=== PATIENT | male | born 1980 | race Caucasian/White ===

== ENCOUNTER 2017-05-10 12:45 | Inpatient (IN) | payer OTHER ==
[2017-05-10 13:29] VITALS: BMI 21.7
--- NOTE | 2017-05-10 14:11 | HP ---
COWS - Scale Resting Pulse: 1= [place] 81-100 Sweatin= Chills/Flushing Restless Observation: 3= Extraneous Movement Pupil Size: 0= Normal to Room Light Bone or Joint Aches: 2= Severe Diffuse Aches Runny Nose/ Eye Tearin= Runny Nose/Eyes GI Upset > 30mins: 1= Stomach Cramp Tremor Observation: 1= Tremor [place], Not Seen Yawning Observation: 1= 1-2x During Session Anxiety or Irritability: 2=Irritable/Anxious Goose Flesh Skin: 0=Smooth Skin COWS Score: 14 Admission ROS [facility]HS - HPI Chief Complaint: DETOX TX FOR HEROIN AND OXYCODONE DEPENDENCE History of Present Illness: 36 Y/O MALE WITH A HX OF HEROIN AND OXYCODONE DEPENDENCE SEEKING DETOX [place]. Exam Limitations: No Limitations - Ebola screening Have you traveled outside of the country in the last 21 days: No Have you had contact with anyone from an Ebola affected area: No Have you been sick,other than usual withdrawal symptoms: No Do you have a fever: No - Review of Systems Constitutional: Chills, Loss of Appetite, Night Sweats, Changes in sleep, Unintentional Wgt. Loss EENT: reports: Tearing, Nose Congestion, Dental Problems (CAVITIES IN THE PAST) Respiratory: reports: No Symptoms reported Cardiac: reports: Lightheadedness GI: reports: Constipated, Diarrhea, Nausea, Vomiting : reports: No Symptoms Reported Musculoskeletal: reports: Joint Pain, Muscle Pain Integumentary: reports: Bruising (IVD INJ SITES ON HANDS) Neuro: reports: Dizziness Endocrine: reports: No Symptoms Reported Hematology: reports: No Symptoms Reported Psychiatric: reports: Orientated x3, Depressed Other Systems: Reviewed and Negative Patient History - Patient Medical History Hx Anemia: No Hx Asthma: No Hx Chronic Obstructive Pulmonary Disease (COPD): No Hx Cardiac Disorders: No Hx Hypertension: No Hx Hypercholesterolemia: No HX Cerebrovascular Accident: No Hx Seizures: No Hx Diabetes: No Hx Gastrointestinal Disorders: No Hx Genitourinary Disorders: No Hx Sexually Transmitted Disorders: No Hx Renal Disease (ESRD): No Hx Thyroid Disease: No Hx Human Immunodeficiency Virus (HIV): No (NEGATIVE HX) Hx Hepatitis C: No Hx Depression: No Hx Suicide Attempt: No (DENIES) Hx Bipolar Disorder: No Hx Schizophrenia: No - Patient Surgical History Past Surgical History: No Hx Neurologic Surgery: No Hx Cataract Extraction: No Hx Cardiac Surgery: No Hx Lung Surgery: No Hx Breast Surgery: No Hx Breast Biopsy: No Hx Abdominal Surgery: No Hx Appendectomy: No Hx Cholecystectomy: No Hx Genitourinary Surgery: No Hx Orthopedic Surgery: No Anesthesia Reaction: No - PPD History Previous Implant?: No Implanted On Prior [facility] Admission?: No Results: TBD PPD to be Administered?: Yes - Reproductive History Patient is a Female of Child Bearing Age (11 -55 yrs old): No (MALE) Patient : (N/A) - Smoking Cessation Smoking history: Current every day smoker Have you smoked in the past 12 months: Yes Aproximately how many cigarettes per day: 20 Hx Chewing Tobacco Use: No Initiated information on smoking cessation: Yes 'Breaking Loose' booklet given: 05/10/17 - Substance & Tx. History Hx Alcohol Use: No Hx Substance Use: Yes (HEROIN/OXYCODONE) Substance Use Type: Heroin, Opiates Hx Substance Use Treatment: No (DENIES PREVIOUS [place]) - Substances Abused Heroin Route: Injection Frequency: Daily Amount used: 40 BAGS Age of first use: 34 Date of Last Use: 05/09/17 OXYCODONE Route: Oral Frequency: Daily Amount used: 7 PILLS Age of first use: 32 Date of Last Use: 05/09/17 Family Disease History - Family Disease History Family History: Denies Admission Physical Exam S - Vital Signs Vital Signs: Vital Signs - 24 hr 05/10/17 13:27 Temperature 96.9 F L Pulse Rate 87 Respiratory 20 Rate Blood Pressure 120/75 - Physical General Appearance: Yes: Moderate Distress, Irritable, Anxious HEENTM: Yes: EOMI, Normocephalic, ALY, Pharynx Normal Respiratory: Yes: Chest Non-Tender, Lungs Clear, Normal Breath Sounds, No Respiratory Distress Neck: Yes: Supple, Trachea in good position Breast: Yes: Breast Exam Deferred Cardiology: Yes: Regular Rhythm, Regular Rate, S1, S2 Abdominal: Yes: Normal Bowel Sounds, Non Tender, Flat, Soft Genitourinary: Yes: Other (N/C) Back: Yes: Within Normal Limits Musculoskeletal: Yes: full range of Motion, Gait Steady Extremities: Yes: Normal Range of Motion, Non-Tender Neurological: Yes: rnp II-XII NML intact, Fully Oriented, Alert, Motor Strength 5/5 Integumentary: Yes: Dry, Warm, Track Arce (IVD INJ SITES ON BOTH HANDS--NO REDNESS OR SWELLING) Lymphatic: Yes: Within Normal Limits - Diagnostic (1) Opioid dependence with withdrawal Current Visit: Yes Status: Acute (2) Nicotine dependence Current Visit: Yes Status: Acute Qualifiers: Nicotine product type: cigarettes Substance use status: in withdrawal Qualified Code(s): F17.213 - Nicotine dependence, cigarettes, with withdrawal; F17.213 - Nicotine dependence, cigarettes, with withdrawal Cleared for Admission [facility] - Detox or Rehab [facility] Level of Care: Medically Managed Detox Regimen/Protocol: Methadone [facility] Breath Alcohol Content Breath Alcohol Content: 0 Urine Drug Screen - Results Drug Screen Negative: No Urine Drug Screen Results: OPI-Opiates
[2017-05-10] MEDS ORDERED: NICOTINE POLACRILEX 4 MG GUM BUC PRN (14:56)
[2017-05-10] MEDS ORDERED: P-EPHED 60MG/TRIPROLIDI 2.5MG TABLET PO PRN (14:56)
[2017-05-10] MEDS ORDERED: MAG HYDROX/AL HYDROX/SIMETH 30 ML UNIT-DOSE CUP PO PRN (14:56)
[2017-05-10] MEDS ORDERED: MAGNESIUM CITRATE 300 ML BOTTLE PO PRN (14:56)
[2017-05-10] MEDS ORDERED: guaiFENesin/D-METHORPHAN HB 10 ML UNIT-DOSE CUPS PO PRN (14:56)
[2017-05-10] MEDS ORDERED: IBUPROFEN 400 MG TABLET (FP) PO PRN (14:56)
[2017-05-10] MEDS ORDERED: MENTHOL/PHENOL 1 EACH UD MM PRN (14:56)
[2017-05-10] MEDS ORDERED: ACETAMINOPHEN 325 MG TABLET (FP) PO PRN (14:56)
[2017-05-10] MEDS ORDERED: LOPERAMIDE HCL 2 MG CAPSULE PO PRN (14:56)
[2017-05-10] MEDS ORDERED: hydrOXYzine PAMOATE 50 MG CAPSULE (FP) PO PRN (14:56)
[2017-05-10] MEDS ORDERED: MAGNESIUM HYDROX 2400MG/30ML ORAL SUSPENSION 30 ML CUP PO PRN (14:56)
[2017-05-10] MEDS ORDERED: METHADONE HCL 10 MG TABLET (FOR DETOX USE ONLY) PO ONE ×2 (15:37→23:00)
[2017-05-10] MEDS: diazePAM 5 MG TABLET PO PRN ×2 (16:53→22:17)
[2017-05-10 16:55] LABS: MCH 29.1 pg (25.7-33.7); MCHC 34.3 g/dl (32.0-35.9); MEAN CELL VOLUME 84.9 fl (80-96); MEAN PLT VOLUME 8.7 fl (7.5-11.1); PLATELET COUNT 285 K/MM3 (134-434)
[2017-05-10] MEDS: NICOTINE 21 MG/24 HOURS TOPICAL PATCH TD SCH (16:56)
[2017-05-10 17:03] LABS: ALBUMIN 4.1 g/dl (3.4-5.0); ANION GAP 10 (8-16); CALCIUM 9.1 mg/dL (8.5-10.1); CO2 28 mmol/L (21-32); CREATININE 0.8 mg/dL (0.7-1.3); GLUCOSE,RANDOM 74 mg/dL (74-106); SGOT/AST 15 U/L (15-37); SGPT/ALT 18 U/L (12-78)
[2017-05-10 17:05] LABS: ALK PHOS 111 U/L (45-117); BILIRUBIN,TOTAL 0.5 mg/dL (0.2-1.0)
--- NOTE | 2017-05-10 17:16 | PN ---
BHS Progress Note Note: received nurse call that the patient needs ppd continue detox
[2017-05-10] MEDS ORDERED: ONDANSETRON *ODT* 4 MG TABLET SL PRN (21:13)
[2017-05-10] MEDS ORDERED: THIAMINE HCL 100 MG TABLET (FP) PO SCH (22:00)
[2017-05-10] MEDS: diphenhydrAMINE HCL 50 MG CAPSULE PO PRN (22:17)
[2017-05-10 23:11] LABS: URINE APPEARANCE CLEAR; URINE BILIRUBIN NEGATIVE (NEGATIVE); URINE BLOOD NEGATIVE (NEGATIVE); URINE COLOR YELLOW; URINE GLUCOSE (UA) NEGATIVE (NEGATIVE); URINE KETONE NEGATIVE (NEGATIVE); URINE LEUK ESTERASE NEGATIVE (NEGATIVE); URINE NITRITE NEGATIVE (NEGATIVE); URINE PROTEIN NEGATIVE (NEGATIVE); URINE UROBILINOGEN NEGATIVE mg/dL (0.2-1.0)
[2017-05-11] MEDS: diazePAM 5 MG TABLET PO PRN ×3 (02:38→10:45)
[2017-05-11] MEDS: diphenhydrAMINE HCL 50 MG CAPSULE PO PRN (03:02)
[2017-05-11] MEDS ORDERED: METHADONE HCL 10 MG TABLET (FOR DETOX USE ONLY) PO ONE (10:00)
[2017-05-11] MEDS ORDERED: PRENATAL VITAMINS W/ FOLIC ACID TABLET (FP) PO SCH (10:00)
[2017-05-11] MEDS: NICOTINE 21 MG/24 HOURS TOPICAL PATCH TD SCH (10:24)
--- NOTE | 2017-05-11 11:52 | EKG ---
Test Reason : Blood Pressure : / mmHG Vent. Rate : 086 BPM Atrial Rate : 086 BPM P-R Int : 128 ms QRS Dur : 098 ms QT Int : 378 ms P-R-T Axes : 066 075 059 degrees QTc Int : 452 ms NORMAL SINUS RHYTHM INCOMPLETE RIGHT BUNDLE BRANCH BLOCK BORDERLINE ECG NO PREVIOUS ECGS AVAILABLE Confirmed by NAEEM LUX MD ([id number]) on 05/11/2017 11:52:16 AM Referred By: Confirmed By:NAEEM LUX MD
--- NOTE | 2017-05-11 12:41 | PN ---
BHS COWS - Scale Resting Pulse: 1= [place] 81-100 Sweatin= Chills/Flushing Restless Observation: 1= Difficult to Sit Still Pupil Size: 0= Normal to Room Light Bone or Joint Aches: 1= Mild Discomfort Runny Nose/ Eye Tearin= Nasal Congestion GI Upset > 30mins: 2= Nausea/Diarrhea Tremor Observation of Outstretched Hands: 0= None Yawning Observation: 1= 1-2x During Session Anxiety or Irritability: 2=Irritable/Anxious Goose Flesh Skin: 3=[place] COWS Score: 13 BHS Progress Note (SOAP) Subjective: Sweating, Stomach Cramping, Nausea, Interrupted sleep Objective: PT. A & O X 3, OBSERVED AMBULATING ON UNIT. NO ACUTE DISTRESS. 05/11/17 12:42 Vital Signs Temperature 97.2 F L 05/11/17 06:36 Pulse Rate 85 05/11/17 09:41 Respiratory Rate 20 05/11/17 09:41 Blood Pressure 103/71 05/11/17 09:41 O2 Sat by Pulse Oximetry (%) Laboratory Tests 05/10/17 05/10/17 05/10/17 14:30 14:30 14:30 WBC 8.0 RBC 4.67 Hgb 13.6 Hct 39.7 MCV 84.9 MCH 29.1 MCHC 34.3 RDW 14.0 Plt Count 285 MPV 8.7 Sodium 141 Potassium 4.5 Chloride 103 Carbon Dioxide 28 Anion Gap 10 BUN 11 Creatinine 0.8 Creat Clearance w eGFR > 60 Random Glucose 74 Calcium 9.1 Total Bilirubin 0.5 AST 15 ALT 18 Alkaline Phosphatase 111 Total Protein 8.0 Albumin 4.1 Urine Color Urine Appearance Urine pH Ur Specific [place] Urine Protein Urine Glucose (UA) Urine Ketones Urine Blood Urine Nitrite Urine Bilirubin Urine Urobilinogen RPR Titer Nonreactive 05/10/17 21:33 WBC RBC Hgb Hct MCV MCH MCHC RDW Plt Count MPV Sodium Potassium Chloride Carbon Dioxide Anion Gap BUN Creatinine Creat Clearance w eGFR Random Glucose Calcium Total Bilirubin AST ALT Alkaline Phosphatase Total Protein Albumin Urine Color Yellow Urine Appearance Clear Urine pH 7.0 Ur Specific [place] 1.020 Urine Protein Negative Urine Glucose (UA) Negative Urine Ketones Negative Urine Blood Negative Urine Nitrite Negative Urine Bilirubin Negative Urine Urobilinogen Negative RPR Titer LABS NOTED. Assessment: 05/11/17 12:43 WITHDRAWAL SYMPTOMS. Plan: CONTINUE DETOX. INCREASE DAILY PO FLUID INTAKE.
[2017-05-11 17:28] VITALS: BP 102/67; PULSE 81; TEMP 97
[2017-05-12] MEDS ORDERED: METHADONE HCL 5 MG TABLET (FOR DETOX USE ONLY) PO ONE (10:00)
[2017-05-13] MEDS ORDERED: METHADONE HCL 5 MG TABLET (FOR DETOX USE ONLY) PO ONE (10:00)
[2017-05-14] MEDS ORDERED: METHADONE HCL 10 MG TABLET (FOR DETOX USE ONLY) PO ONE (10:00)
[2017-05-15] MEDS ORDERED: METHADONE HCL 5 MG TABLET (FOR DETOX USE ONLY) PO ONE (06:00)
== END 2017-05-11 18:05 | disposition left against medical advice (07) | DRG 770 ==
LOC: YASAS 12:45 → Y3N 15:34
PROVIDERS: ADMIT Internal Medicine; ATTEND Internal Medicine
PROC: HZ2ZZZZ Detoxification Services for Substance Abuse Treatment (ICD-10-PCS; principal; 2017-05-10)
DX: F11.23 Opioid dependence with withdrawal (principal); F17.213 Nicotine dependence, cigarettes, with withdrawal
CPT/HCPCS: 36415; 80053; 81003; 85027; 86593; 93005; 93010

== ENCOUNTER 2017-09-09 08:19 | Inpatient (IN) | payer OTHER ==
[2017-09-09 09:30] VITALS: BMI 22.4
--- NOTE | 2017-09-09 11:21 | HP ---
COWS - Scale Resting Pulse: 1= [place] 81-100 Sweatin= Chills/Flushing Restless Observation: 1= Difficult to Sit Still Pupil Size: 0= Normal to Room Light Bone or Joint Aches: 2= Severe Diffuse Aches Runny Nose/ Eye Tearin= Runny Nose/Eyes GI Upset > 30mins: 2= Nausea/Diarrhea Tremor Observation: 0= None Yawning Observation: 2= >3x During Session Anxiety or Irritability: 2=Irritable/Anxious Goose Flesh Skin: 0=Smooth Skin COWS Score: 13 Admission [facility] - HPI Chief Complaint: "I'm here to detox and to better my life." Pt. is here to Detox from Heroin. Allergies/Adverse Reactions: Allergies Allergy/AdvReac Type Severity Reaction Status Date / Time No Known Allergies Allergy Verified 09/09/17 09:26 History of Present Illness: Pt. is a 37 YO male here to Detox from Heroin. Pt. has had 1 previous Detox admission at [facility] (05/2017; left AMA due to family emergency). Pt. started using Percocet (non-prescribed) approx. 2.5 years ago and then switched to Heroin use approx. 1.5 years ago. Exam Limitations: No Limitations - Ebola screening Have you traveled outside of the country in the last 21 days: No (N) Have you had contact with anyone from an Ebola affected area: No Have you been sick,other than usual withdrawal symptoms: No Do you have a fever: No - Review of Systems Constitutional: Chills, Diaphoresis, Fever, Loss of Appetite, Malaise, Night Sweats, Changes in sleep EENT: reports: Nose Congestion, Sinus Pressure Respiratory: reports: Productive cough GI: reports: Diarrhea, Nausea, Poor Appetite : reports: No Symptoms Reported Musculoskeletal: reports: No Symptoms Reported Integumentary: reports: No Symptoms Reported Neuro: reports: No Symptoms reported Endocrine: reports: No Symptoms Reported Hematology: reports: No Symptoms Reported Psychiatric: reports: Judgement Intact, Mood/Affect Appropiate, Orientated x3, Anxious, Depressed (Minor, only when detoxing.) Other Systems: Reviewed and Negative Patient History - Patient Medical History Hx Anemia: No Hx Asthma: No Hx Chronic Obstructive Pulmonary Disease (COPD): No Hx Cancer: No Hx Cardiac Disorders: No Hx Congestive Heart Failure: No Hx Hypertension: No Hx Hypercholesterolemia: No Hx Pacemaker: No HX Cerebrovascular Accident: No Hx Seizures: No Hx Dementia: No Hx Diabetes: No Hx Gastrointestinal Disorders: No Hx Liver Disease: No Hx Genitourinary Disorders: No Hx Sexually Transmitted Disorders: No Hx Renal Disease (ESRD): No Hx Thyroid Disease: No Hx Human Immunodeficiency Virus (HIV): No (NEGATIVE HX; Last Tested approx. 1 year ago.) Hx Hepatitis C: No (Never Tested.) Hx Depression: Yes (Minor, only when detoxing, no previous treatment.) Hx Suicide Attempt: No (PATIENT DENIES CURRENT SI / HI.) Hx Bipolar Disorder: No Hx Schizophrenia: No Other Medical History: DENIES. - Patient Surgical History Past Surgical History: No Hx Neurologic Surgery: No Hx Cataract Extraction: No Hx Cardiac Surgery: No Hx Lung Surgery: No Hx Breast Surgery: No Hx Breast Biopsy: No Hx Abdominal Surgery: No Hx Appendectomy: No Hx Cholecystectomy: No Hx Genitourinary Surgery: No Hx Orthopedic Surgery: No Anesthesia Reaction: No - PPD History Previous Implant?: Yes Documented Results: Negative w/o proof Implanted On Prior [facility] Admission?: Yes Date: 05/12/17 Results: not read PPD to be Administered?: Yes - Reproductive History Patient is a Female of Child Bearing Age (11 -55 yrs old): No (PATIENT IS MALE.) - Smoking Cessation Smoking history: Current every day smoker Have you smoked in the past 12 months: Yes Aproximately how many cigarettes per day: 20 Cigars Per Day: 0 Hx Chewing Tobacco Use: No Initiated information on smoking cessation: Yes 'Breaking Loose' booklet given: 09/09/17 (GIVEN TO PATIENT.) - Substance & Tx. History Hx Alcohol Use: No Hx Substance Use: Yes Substance Use Type: Heroin Hx Substance Use Treatment: Yes (1 Previous dEtox admission at [facility] (05/2017).) - Substances Abused Heroin Route: Injection Frequency: Daily Amount used: 10 bags Age of first use: 35 Date of Last Use: 09/08/17 Family Disease History - Family Disease History Family History: Denies Admission Physical Exam BHS - Vital Signs Vital Signs: Vital Signs - 24 hr 09/09/17 09:24 Temperature 97.3 F L Pulse Rate 83 Respiratory 20 Rate Blood Pressure 125/71 - Physical General Appearance: Yes: No Apparent Distress, Nourished, Appropriately Dressed , Anxious HEENTM: Yes: Hearing grossly Normal, Normocephalic, Normal Voice, ALY, Other ( NOTE: Patient refused to have mouth visually examined.) Respiratory: Yes: Chest Non-Tender, Lungs Clear, No Respiratory Distress, No Accessory Muscle Use Neck: Yes: No masses,lesions,Nodules, Supple, Trachea in good position Breast: Yes: Breast Exam Deferred Cardiology: Yes: Regular Rhythm, Regular Rate, S1, S2 Abdominal: Yes: Normal Bowel Sounds, Non Tender, Flat, Soft Genitourinary: Yes: Within Normal Limits Back: Yes: Normal Inspection Musculoskeletal: Yes: full range of Motion, Gait Steady Extremities: Yes: Normal Capillary Refill, Normal Range of Motion, Non-Tender Neurological: Yes: Fully Oriented, Alert, Normal Mood/Affect, Normal Response Integumentary: Yes: Normal Color, Dry, Warm, Track Arce (Noted on Bilateral Hadns and on Right Forearm. No signs of infection noted at any affected site.) Lymphatic: Yes: Within Normal Limits - Diagnostic (1) Nicotine dependence Current Visit: Yes Status: Chronic Qualifiers: Nicotine product type: cigarettes Substance use status: uncomplicated Qualified Code(s): F17.210 - Nicotine dependence, cigarettes, uncomplicated (2) Opioid dependence with withdrawal Current Visit: Yes Status: Acute Cleared for Admission [facility] - Detox or Rehab [facility] Level of Care: Medically Managed Detox Regimen/Protocol: Methadone [facility] Breath Alcohol Content Breath Alcohol Content: 0 Urine Drug Screen - Results Drug Screen Negative: No Urine Drug Screen Results: OPI-Opiates
[2017-09-09] MEDS ORDERED: MAGNESIUM HYDROX 2400MG/30ML ORAL SUSPENSION 30 ML CUP PO PRN (11:34)
[2017-09-09] MEDS ORDERED: P-EPHED 60MG/TRIPROLIDI 2.5MG TABLET PO PRN (11:34)
[2017-09-09] MEDS ORDERED: chlordiazePOXIDE HCL 25 MG CAPSULE PO PRN (11:34)
[2017-09-09] MEDS ORDERED: ACETAMINOPHEN 325 MG TABLET (FP) PO PRN (11:34)
[2017-09-09] MEDS ORDERED: LOPERAMIDE HCL 2 MG CAPSULE PO PRN (11:34)
[2017-09-09] MEDS ORDERED: IBUPROFEN 400 MG TABLET (FP) PO PRN (11:34)
[2017-09-09] MEDS ORDERED: MAG HYDROX/AL HYDROX/SIMETH 30 ML UNIT-DOSE CUP PO PRN (11:34)
[2017-09-09] MEDS ORDERED: guaiFENesin/D-METHORPHAN HB 10 ML UNIT-DOSE CUPS PO PRN (11:34)
[2017-09-09] MEDS ORDERED: MAGNESIUM CITRATE 300 ML BOTTLE PO PRN (11:34)
[2017-09-09] MEDS ORDERED: MENTHOL/PHENOL 1 EACH UD MM PRN (11:34)
[2017-09-09] MEDS ORDERED: chlordiazePOXIDE HCL 25 MG CAPSULE PO ONE (12:09)
[2017-09-09] MEDS ORDERED: METHADONE HCL 10 MG TABLET (FOR DETOX USE ONLY) PO ONE ×2 (13:47→23:00)
[2017-09-09] MEDS: diazePAM 5 MG TABLET PO PRN ×2 (13:51→19:58)
[2017-09-09] MEDS: NICOTINE 21 MG/24 HOURS TOPICAL PATCH TD SCH (13:52)
[2017-09-09 14:38] LABS: HEMATOCRIT 40.4 % (35.4-49); HEMOGLOBIN 13.2 GM/dL (11.7-16.9); MCH 28.5 pg (25.7-33.7); MCHC 32.7 g/dl (32.0-35.9); MEAN PLT VOLUME 8.7 fl (7.5-11.1); PLATELET COUNT 294 K/MM3 (134-434); RBC 4.65 M/mm3 (4.00-5.60); RDW 13.2 % (11.9-15.9); WHITE BLOOD COUNT 9.2 K/mm3 (4.0-10.0)
[2017-09-09 15:02] LABS: ALBUMIN 3.9 g/dl (3.4-5.0); ALK PHOS 112 U/L (45-117); ANION GAP 9 (8-16); BILIRUBIN,TOTAL 0.2 mg/dL (0.2-1.0); BLOOD UREA NITROGEN 9 mg/dL (7-18); CALCIUM 8.9 mg/dL (8.5-10.1); CHLORIDE 103 mmol/L (98-107); CO2 29 mmol/L (21-32); CREATININE 0.8 mg/dL (0.7-1.3); GLUCOSE,RANDOM 77 mg/dL (74-106); POTASSIUM 4.5 mmol/L (3.5-5.1); SGOT/AST 19 U/L (15-37); SGPT/ALT 20 U/L (12-78); SODIUM 141 mmol/L (136-145)
[2017-09-09] MEDS ORDERED: chlordiazePOXIDE HCL 25 MG CAPSULE PO SCH (17:00)
[2017-09-09 17:34] LABS: URINE APPEARANCE CLEAR; URINE BILIRUBIN NEGATIVE (NEGATIVE); URINE BLOOD NEGATIVE (NEGATIVE); URINE COLOR YELLOW; URINE GLUCOSE (UA) NEGATIVE (NEGATIVE); URINE KETONE NEGATIVE (NEGATIVE); URINE LEUK ESTERASE NEGATIVE (NEGATIVE); URINE NITRITE NEGATIVE (NEGATIVE); URINE PROTEIN NEGATIVE (NEGATIVE); URINE UROBILINOGEN NEGATIVE mg/dL (0.2-1.0)
[2017-09-09] MEDS: THIAMINE HCL 100 MG TABLET (FP) PO SCH (22:20)
[2017-09-10] MEDS: diazePAM 5 MG TABLET PO PRN ×4 (00:45→16:55)
[2017-09-10] MEDS ORDERED: METHADONE HCL 10 MG TABLET (FOR DETOX USE ONLY) PO ONE (10:00)
[2017-09-10] MEDS: PRENATAL VITAMINS W/ FOLIC ACID TABLET (FP) PO SCH (10:45)
--- NOTE | 2017-09-10 10:50 | PN ---
S COWS - Scale Resting Pulse: 1= [place] 81-100 Sweatin= Chills/Flushing Restless Observation: 3= Extraneous Movement Pupil Size: 1= Pupils >than Normal Bone or Joint Aches: 2= Severe Diffuse Aches Runny Nose/ Eye Tearin= Runny Nose/Eyes GI Upset > 30mins: 3= Vomiting/Diarrhea Tremor Observation of Outstretched Hands: 2= Slight Tremor Visible Yawning Observation: 1= 1-2x During Session Anxiety or Irritability: 2=Irritable/Anxious Goose Flesh Skin: 0=Smooth Skin COWS Score: 18 S Progress Note (SOAP) Subjective: ALERT,IRRITABLE,ANXIOUS,INTERRUPTED SLEEP,PAIN IN THE BODY AND BACK,TREMOR Objective: 09/10/17 10:48 Vital Signs Temperature 97.0 F L 09/10/17 10:06 Pulse Rate 95 H 09/10/17 10:06 Respiratory Rate 18 09/10/17 10:06 Blood Pressure 109/69 09/10/17 10:06 O2 Sat by Pulse Oximetry (%) EKG NSR,NORMAL ECG Laboratory Last Values WBC 9.2 K/mm3 (4.0-10.0) 09/09/17 12:00 RBC 4.65 M/mm3 (4.00-5.60) 09/09/17 12:00 Hgb 13.2 GM/dL (11.7-16.9) 09/09/17 12:00 Hct 40.4 % (35.4-49) 09/09/17 12:00 MCV 87.0 fl (80-96) 09/09/17 12:00 MCH 28.5 pg (25.7-33.7) 09/09/17 12:00 MCHC 32.7 g/dl (32.0-35.9) 09/09/17 12:00 RDW 13.2 % (11.9-15.9) 09/09/17 12:00 Plt Count 294 K/MM3 (134-434) 09/09/17 12:00 MPV 8.7 fl (7.5-11.1) 09/09/17 12:00 Sodium 141 mmol/L (136-145) 09/09/17 12:00 Potassium 4.5 mmol/L (3.5-5.1) 09/09/17 12:00 Chloride 103 mmol/L (98-107) 09/09/17 12:00 Carbon Dioxide 29 mmol/L (21-32) 09/09/17 12:00 Anion Gap 9 (8-16) 09/09/17 12:00 BUN 9 mg/dL (7-18) 09/09/17 12:00 Creatinine 0.8 mg/dL (0.7-1.3) 09/09/17 12:00 Creat Clearance w eGFR > 60 (>60) 09/09/17 12:00 Random Glucose 77 mg/dL (74-106) 09/09/17 12:00 Calcium 8.9 mg/dL (8.5-10.1) 09/09/17 12:00 Total Bilirubin 0.2 mg/dL (0.2-1.0) D 09/09/17 12:00 AST 19 U/L (15-37) D 09/09/17 12:00 ALT 20 U/L (12-78) 09/09/17 12:00 Alkaline Phosphatase 112 U/L (45-117) 09/09/17 12:00 Total Protein 8.0 g/dl (6.4-8.2) 09/09/17 12:00 Albumin 3.9 g/dl (3.4-5.0) 09/09/17 12:00 Urine Color Yellow 09/09/17 15:00 Urine Appearance Clear 09/09/17 15:00 Urine pH 5.0 (5.0-8.0) D 09/09/17 15:00 Ur Specific [place] 1.024 (1.001-1.035) 09/09/17 15:00 Urine Protein Negative (NEGATIVE) 09/09/17 15:00 Urine Glucose (UA) Negative (NEGATIVE) 09/09/17 15:00 Urine Ketones Negative (NEGATIVE) 09/09/17 15:00 Urine Blood Negative (NEGATIVE) 09/09/17 15:00 Urine Nitrite Negative (NEGATIVE) 09/09/17 15:00 Urine Bilirubin Negative (NEGATIVE) 09/09/17 15:00 Urine Urobilinogen Negative mg/dL (0.2-1.0) 09/09/17 15:00 Ur Leukocyte Esterase Negative (NEGATIVE) 09/09/17 15:00 09/10/17 10:49 LABS PENDING Assessment: 09/10/17 10:49 WITHDRAWAL SYMPTOM Plan: CONTINUE DETOX
[2017-09-10] MEDS: NICOTINE 21 MG/24 HOURS TOPICAL PATCH TD SCH (11:00)
[2017-09-10] MEDS: NICOTINE POLACRILEX 2 MG GUM BUC PRN ×3 (12:35→21:37)
[2017-09-10] MEDS ORDERED: chlordiazePOXIDE HCL 25 MG CAPSULE PO SCH (17:00)
[2017-09-10] MEDS: hydrOXYzine PAMOATE 50 MG CAPSULE (FP) PO SCH (22:39)
[2017-09-10] MEDS: THIAMINE HCL 100 MG TABLET (FP) PO SCH (22:39)
[2017-09-11] MEDS: diazePAM 5 MG TABLET PO PRN ×3 (00:03→11:11)
[2017-09-11] MEDS: NICOTINE POLACRILEX 2 MG GUM BUC PRN ×4 (06:22→17:21)
--- NOTE | 2017-09-11 09:09 | PN ---
BHS COWS - Scale Resting Pulse: 1= [place] 81-100 Sweatin= Chills/Flushing Restless Observation: 1= Difficult to Sit Still Pupil Size: 0= Normal to Room Light Bone or Joint Aches: 1= Mild Discomfort Runny Nose/ Eye Tearin= Nasal Congestion GI Upset > 30mins: 1= Stomach Cramp Tremor Observation of Outstretched Hands: 1= Tremor [place], Not Seen Yawning Observation: 0= None Anxiety or Irritability: 0= None Goose Flesh Skin: 0=Smooth Skin COWS Score: 7 BHS Progress Note (SOAP) Subjective: patient reports feeling better less joint aches, no GI distress, mild tremor, alert oriented x 3 want to leave 09/12/17 to home and agrees aftercare follow up Objective: 09/11/17 09:13 Vital Signs Temperature 96.3 F L 09/11/17 06:23 Pulse Rate 70 09/11/17 06:23 Respiratory Rate 18 09/11/17 06:23 Blood Pressure 123/88 09/11/17 06:23 O2 Sat by Pulse Oximetry (%) Laboratory Last Values WBC 9.2 K/mm3 (4.0-10.0) 09/09/17 12:00 RBC 4.65 M/mm3 (4.00-5.60) 09/09/17 12:00 Hgb 13.2 GM/dL (11.7-16.9) 09/09/17 12:00 Hct 40.4 % (35.4-49) 09/09/17 12:00 MCV 87.0 fl (80-96) 09/09/17 12:00 MCH 28.5 pg (25.7-33.7) 09/09/17 12:00 MCHC 32.7 g/dl (32.0-35.9) 09/09/17 12:00 RDW 13.2 % (11.9-15.9) 09/09/17 12:00 Plt Count 294 K/MM3 (134-434) 09/09/17 12:00 MPV 8.7 fl (7.5-11.1) 09/09/17 12:00 Sodium 141 mmol/L (136-145) 09/09/17 12:00 Potassium 4.5 mmol/L (3.5-5.1) 09/09/17 12:00 Chloride 103 mmol/L (98-107) 09/09/17 12:00 Carbon Dioxide 29 mmol/L (21-32) 09/09/17 12:00 Anion Gap 9 (8-16) 09/09/17 12:00 BUN 9 mg/dL (7-18) 09/09/17 12:00 Creatinine 0.8 mg/dL (0.7-1.3) 09/09/17 12:00 Creat Clearance w eGFR > 60 (>60) 09/09/17 12:00 Random Glucose 77 mg/dL (74-106) 09/09/17 12:00 Calcium 8.9 mg/dL (8.5-10.1) 09/09/17 12:00 Total Bilirubin 0.2 mg/dL (0.2-1.0) D 09/09/17 12:00 AST 19 U/L (15-37) D 09/09/17 12:00 ALT 20 U/L (12-78) 09/09/17 12:00 Alkaline Phosphatase 112 U/L (45-117) 09/09/17 12:00 Total Protein 8.0 g/dl (6.4-8.2) 09/09/17 12:00 Albumin 3.9 g/dl (3.4-5.0) 09/09/17 12:00 Urine Color Yellow 09/09/17 15:00 Urine Appearance Clear 09/09/17 15:00 Urine pH 5.0 (5.0-8.0) D 09/09/17 15:00 Ur Specific [place] 1.024 (1.001-1.035) 09/09/17 15:00 Urine Protein Negative (NEGATIVE) 09/09/17 15:00 Urine Glucose (UA) Negative (NEGATIVE) 09/09/17 15:00 Urine Ketones Negative (NEGATIVE) 09/09/17 15:00 Urine Blood Negative (NEGATIVE) 09/09/17 15:00 Urine Nitrite Negative (NEGATIVE) 09/09/17 15:00 Urine Bilirubin Negative (NEGATIVE) 09/09/17 15:00 Urine Urobilinogen Negative mg/dL (0.2-1.0) 09/09/17 15:00 Ur Leukocyte Esterase Negative (NEGATIVE) 09/09/17 15:00 RPR Titer Nonreactive (NONREACTIVE) 09/09/17 12:00 lab noted Assessment: 09/11/17 09:13 mild withdrawal sx methadone 10 mg today as discussed with the patient Plan: continue detox will received methadone 5 mg 09/12/17 and discharge to aftercare
[2017-09-11] MEDS ORDERED: METHADONE HCL 5 MG TABLET (FOR DETOX USE ONLY) PO ONE (10:00)
[2017-09-11] MEDS ORDERED: METHADONE HCL 10 MG TABLET (FOR DETOX USE ONLY) PO ONE (10:00)
[2017-09-11] MEDS: PRENATAL VITAMINS W/ FOLIC ACID TABLET (FP) PO SCH (10:45)
[2017-09-11] MEDS: NICOTINE 21 MG/24 HOURS TOPICAL PATCH TD SCH (10:46)
--- NOTE | 2017-09-11 11:28 | CONSULT ---
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 He started using heroin at age 35, consumes 10 bags daily. Last used on 09/08/17 Medical History: Unremarkable. Smokes nicotine 1ppd Psychiatric History: Denies history of previous psychiatric treatment Physical/Sexual Abuse/Trauma History: Denies history of emotional, physical or sexual abuse as well as DV relationship Additional Comment: Reports history of 3 previous misdemeanor arrests on [facility] of marijuana possession and suspended license Mental Status Exam - Mental Status Exam Alert and Oriented to: Time, Place, Person Cognitive Function: Fair Patient Appearance: Well Groomed Mood: Hopeful, Euthymic Affect: Appropriate Patient Behavior: Cooperative Speech Pattern: Clear Voice Loudness: Normal Thought Process: Intact, Goal Oriented Hallucinations: Denies Suicidal Ideation: Denies Homicidal Ideation: Denies Insight/Judgement: Poor Sleep: Poorly Appetite: Good Muscle strength/Tone: Normal Gait/Station: Normal Psychiatric Findings - Problem List ([place] 1, 2,3) (1) Substance-induced sleep disorder Current Visit: Yes Status: Acute (2) Opioid dependence with withdrawal Current Visit: Yes Status: Acute (3) Nicotine dependence Current Visit: Yes Status: Chronic Qualifiers: Nicotine product type: cigarettes Substance use status: uncomplicated Qualified Code(s): F17.210 - Nicotine dependence, cigarettes, uncomplicated - Initial Treatment Plan Initial Treatment Plan: 1) Start Ambien 10 mg po HS prn for insomnia(Benefits vs Risks of medication discussed with patient). 2) Continue inpatient detoxification
[2017-09-11] MEDS ORDERED: ZOLPIDEM TARTRATE 5 MG TABLET PO PRN (12:24)
--- NOTE | 2017-09-11 13:26 | EKG ---
Test Reason : Blood Pressure : / mmHG Vent. Rate : 070 BPM Atrial Rate : 070 BPM P-R Int : 116 ms QRS Dur : 094 ms QT Int : 396 ms P-R-T Axes : 024 075 058 degrees QTc Int : 427 ms NORMAL SINUS RHYTHM INCOMPLETE RIGHT BUNDLE BRANCH BLOCK WHEN COMPARED WITH ECG OF 10-MAY-2017 17:11, NO SIGNIFICANT CHANGE WAS FOUND Confirmed by CHRISTINA GASTELUM MD ([id number]) on 09/11/2017 1:25:57 PM Referred By: Confirmed By:CHRISTINA GASTELUM MD
[2017-09-11] MEDS ORDERED: chlordiazePOXIDE 5 MG CAPSULE PO SCH (17:00)
[2017-09-11] MEDS: hydrOXYzine PAMOATE 50 MG CAPSULE (FP) PO SCH (22:24)
[2017-09-11] MEDS: THIAMINE HCL 100 MG TABLET (FP) PO SCH (22:24)
[2017-09-12] MEDS: diazePAM 5 MG TABLET PO PRN (02:14)
[2017-09-12] MEDS ORDERED: METHADONE HCL 5 MG TABLET (FOR DETOX USE ONLY) PO ONE ×2 (06:00→10:00)
[2017-09-12 06:16] VITALS: BP 117/66; PULSE 82; TEMP 97.2
[2017-09-12] MEDS: NICOTINE POLACRILEX 2 MG GUM BUC PRN (06:48)
--- NOTE | 2017-09-12 08:51 | PN ---
S Progress Note (SOAP) Subjective: ALERT,IRRITABLE,INTERRUPTED SLEEP,LESS WITHDRAWAL SYMPTOM Objective: 09/12/17 08:50 Vital Signs Temperature 97.2 F L 09/12/17 06:15 Pulse Rate 82 09/12/17 06:15 Respiratory Rate 18 09/12/17 06:15 Blood Pressure 117/66 09/12/17 06:15 O2 Sat by Pulse Oximetry (%) Assessment: 09/12/17 08:50 WITHDRAWAL SYMPTOM Plan: CONTINUE DETOX
--- NOTE | 2017-09-12 08:54 | DS ---
[facility] Detox Discharge Summary Admission Date: 09/09/17 Discharge Date: 09/12/17 - History Present History: Opioid Dependence Additional Comments: PATIENT DID NOT WANT TO COMPLETE TREATMENT DUE TO EMERGENCY FAMILY PROBLEM,SEEN BY COUNSELOR,SIGNED RELEASE AMA Pertinent Past History: NICOTINE DEPENDENCE - Physical Exam Results Vital Signs: Vital Signs Temperature 97.2 F L 09/12/17 06:15 Pulse Rate 82 09/12/17 06:15 Respiratory Rate 18 09/12/17 06:15 Blood Pressure 117/66 09/12/17 06:15 O2 Sat by Pulse Oximetry (%) Pertinent Admission Physical Exam Findings: WITHDRAWAL SYMPTOM AND FINDING - Medication Discharge Medications: Ambulatory Orders NK [No Known Home Medication] 05/10/17 - Diagnosis (1) Opioid dependence with withdrawal Current Visit: Yes Status: Acute (2) Nicotine dependence Current Visit: Yes Status: Chronic Qualifiers: Nicotine product type: cigarettes Substance use status: uncomplicated Qualified Code(s): F17.210 - Nicotine dependence, cigarettes, uncomplicated - AMA Did Patient Leave Against Medical Advice: Yes
[2017-09-12] MEDS ORDERED: chlordiazePOXIDE HCL 10 MG CAPSULE PO SCH (17:00)
[2017-09-13] MEDS ORDERED: METHADONE HCL 10 MG TABLET (FOR DETOX USE ONLY) PO ONE (10:00)
[2017-09-14] MEDS ORDERED: METHADONE HCL 5 MG TABLET (FOR DETOX USE ONLY) PO ONE (06:00)
== END 2017-09-12 09:07 | disposition left against medical advice (07) | DRG 770 ==
LOC: YASAS 08:19 → Y6N 11:18
PROVIDERS: ADMIT Internal Medicine; ATTEND Internal Medicine
PROC: HZ2ZZZZ Detoxification Services for Substance Abuse Treatment (ICD-10-PCS; principal; 2017-09-09)
DX: F11.23 Opioid dependence with withdrawal (principal); F17.210 Nicotine dependence, cigarettes, uncomplicated; F19.282 Other psychoactive substance dependence with psychoactive substance-induced sleep disorder
CPT/HCPCS: 36415; 80053; 81003; 85027; 86593; 93005; 93010